=== PATIENT | female | born 1940 | race Caucasian/White ===

== ENCOUNTER 2017-09-08 10:01 | Emergency (ER) | payer MEDICARE ==
[2017-09-08] MEDS ORDERED: NORMAL SALINE 1000 ML 1,000 ML IV ONE (11:00)
--- NOTE | 2017-09-08 11:07 | ER Document Report ---
ED Medical Screen (RME) - General Chief Complaint: Decreased Appetite Stated Complaint: FALL Time Seen by Provider: 09/08/17 10:58 Notes: This 77-year-old female patient comes emergency room complaining of onset Wednesday night of nausea vomiting diarrhea. She vomited all night Wednesday night, now just has dry heaves. She has had poor p.o. intake for the past week. She reports she has been having diarrhea since Wednesday evening. Not sure about fevers. No recent antibiotic treatment. I have greeted and performed a rapid initial assessment of this patient. A comprehensive ED assessment and evaluation of the patient, analysis of test results and completion of the medical decision making process will be conducted by additional ED providers. - Related Data Allergies/Adverse Reactions: No Known Allergies Allergy (Verified 09/08/17 10:05) Past Medical History - Social History Chew tobacco use (# tins/day): No Frequency of alcohol use: None Drug Abuse: None - Past Medical History Cardiac Medical History: Reports: Hx Hypertension Renal/ Medical History: Reports: Hx End Stage Renal Disease - ckd. Denies: Hx Peritoneal Dialysis Past Surgical History: Reports: Hx Cholecystectomy, Hx Hysterectomy, Hx Tonsillectomy Physical Exam - Vital signs Vitals: Temp Pulse Resp BP Pulse Ox 98.7 F 103 H 21 H 132/65 H 96 09/08/17 10:07 09/08/17 10:07 09/08/17 10:07 09/08/17 10:07 09/08/17 10:07 Course - Vital Signs Vital signs: Temp Pulse Resp BP Pulse Ox 98.7 F 103 H 21 H 132/65 H 96 09/08/17 10:07 09/08/17 10:07 09/08/17 10:07 09/08/17 10:07 09/08/17 10:07
--- NOTE | 2017-09-08 12:36 | RADIOLOGY REPORT (SQ) ---
EXAM DESCRIPTION: ACUTE ABDOMEN SERIES COMPLETED DATE/TIME: 09/08/2017 12:00 pm REASON FOR STUDY: N,V,D, COPD COMPARISON: None. NUMBER OF VIEWS: Three views. TECHNIQUE: Frontal chest, supine abdomen and upright/decubitus abdomen radiographic images acquired. LIMITATIONS: None. FINDINGS: CHEST: Lungs clear of infiltrates. FREE AIR: None. No abnormal gas collections. BOWEL GAS PATTERN: Gas is present in the large and small bowel in a nonspecific pattern. No bowel di latation or air-fluid levels are seen suggest obstruction. CALCIFICATIONS: No suspicious calcifications. HARDWARE: Multiple surgical clips in the right upper quadrant. Single surgical clip in the pelvis. SOFT TISSUES: No gross mass or suggestion of organomegaly. BONES: No acute fracture. No worrisome bone lesions. OTHER: No other significant finding. IMPRESSION: NO RADIOGRAPHIC EVIDENCE FOR ACUTE ABDOMINAL DISEASE. TECHNICAL DOCUMENTATION: JOB ID: [id number] [employer]- All Rights Reserved
[2017-09-08 12:41] LABS: ABSOLUTE EOSINOPHILS # (AUTO) 0.1 10^3/uL (0.0-0.6); ABSOLUTE LYMPHOCYTES (AUTO) 0.6 10^3/uL (0.5-4.7); ABSOLUTE MONOCYTES (AUTO) 0.6 10^3/uL (0.1-1.4); BASOPHILS % (AUTO) 0.4 % (0-2); EOSINOPHILS % (AUTO) 1.2 % (0-6); HEMATOCRIT 40.8 % (36.0-47.0); HEMOGLOBIN 13.3 g/dL (12.0-15.5); LYMPHOCYTES % (AUTO) 7.4 % (13-45); MEAN CORPUSCULAR HEMOGLOBIN 29.1 pg (27.0-33.4); MEAN CORPUSCULAR HGB CONC 32.7 g/dL (32.0-36.0); MEAN CORPUSCULAR VOLUME 89 fl (80-97); MONOCYTES % (AUTO) 7.7 % (3-13); PLATELET COUNT 263 10^3/uL (150-450); RED BLOOD COUNT 4.57 10^6/uL (3.72-5.28); RED CELL DISTRIBUTION WIDTH 14.7 % (11.5-14.0); SEGMENTED NEUTROPHILS % (AUTO) 83.3 % (42-78); TOTAL CELLS COUNTED % (AUTO) 100 %; WHITE BLOOD COUNT 8.4 10^3/uL (4.0-10.5)
[2017-09-08 13:00] LABS: ALANINE AMINOTRANSFERASE 40 U/L (9-52); ALBUMIN 3.8 g/dL (3.5-5.0); ALKALINE PHOSPHATASE 82 U/L (38-126); ANION GAP 13 (5-19); ASPARTATE AMINO TRANSFERASE 27 U/L (14-36); BILIRUBIN,DIRECT 0.3 mg/dL (0.0-0.4); BILIRUBIN,TOTAL 0.4 mg/dL (0.2-1.3); BLOOD UREA NITROGEN 28 mg/dL (7-20); CALCIUM 8.8 mg/dL (8.4-10.2); CARBON DIOXIDE 23 mmol/L (22-30); CHLORIDE 106 mmol/L (98-107); CREATINE KINASE 59 U/L (30-135); GLUCOSE 108 mg/dL (75-110); MAGNESIUM 1.9 mg/dL (1.6-2.3); POTASSIUM 4.3 mmol/L (3.6-5.0); SODIUM 141.5 mmol/L (137-145); TOTAL PROTEIN 6.4 g/dL (6.3-8.2)
[2017-09-08 13:11] LABS: CREATINE KINASE MB 0.91 ng/mL (<4.55)
[2017-09-08 13:14] LABS: TROPONIN I < 0.012 ng/mL
--- NOTE | 2017-09-08 14:42 | ER Document Report ---
ED GI/ - General Chief Complaint: Decreased Appetite Stated Complaint: FALL Time Seen by Provider: 09/08/17 10:58 Notes: Patient says that she has been sick for the last 3 days with vomiting and diarrhea. It started Wednesday. had similar symptoms for 3 days last week. Patient was also sick about a month ago with something similar. At that time, she experienced a fall, no recent fall. Her vomiting has not had any blood, but has had yellow bile color to it. She is also had diarrhea without blood. Her urine output has been decreased. Denies any fever. PMH: Hysterectomy partial, cholecystectomy, bladder lift. - Related Data Allergies/Adverse Reactions: No Known Allergies Allergy (Verified 09/08/17 10:05) Past Medical History - Social History Smoking Status: Former Smoker Cigarette use (# per day): No Chew tobacco use (# tins/day): No Frequency of alcohol use: None Drug Abuse: None Family History: Reviewed & Not Pertinent Patient has suicidal ideation: No Patient has homicidal ideation: No - Past Medical History Cardiac Medical History: Reports: Hx Hypercholesterolemia, Hx Hypertension Endocrine Medical History: Reports: Hx Hypothyroidism Renal/ Medical History: Reports: Hx End Stage Renal Disease - ckd Past Surgical History: Reports: Hx Cholecystectomy, Hx Hysterectomy, Hx Tonsillectomy Review of Systems - Review of Systems Notes: CONSTITUTIONAL : Denies fever. Vital signs were all essentially normal. CARDIOVASCULAR: Denies chest pain. RESPIRATORY: Denies cough, chest congestion, or shortness of breath. GASTROINTESTINAL: See HPI. GENITOURINARY: Denies difficulty or painful urinating, urinary frequency, blood in urine. Physical Exam - Vital signs Vitals: Temp Pulse Resp BP Pulse Ox 98.7 F 103 H 21 H 132/65 H 96 09/08/17 10:07 09/08/17 10:07 09/08/17 10:07 09/08/17 10:07 09/08/17 10:07 Interpretation: Normal - Notes Notes: PHYSICAL EXAMINATION: GENERAL: Well-appearing, no acute distress. HEAD: Atraumatic, normocephalic. NECK: Normal range of motion, supple. LUNGS: Breath sounds clear and equal bilaterally. HEART: Regular rate and rhythm without murmurs heard. ABDOMEN: Soft, nontender. No guarding or rebound or masses felt. Course - Re-evaluation Re-evalutation: 09/08/17 19:57 Patient felt better after a liter of saline IV. However, she still was having some diarrhea. I have opted to give her 3 days of Cipro for possible colitis. I told her she can use [id number] medications for the diarrhea, but we usually just let it run its course. - Vital Signs Vital signs: Temp Pulse Resp BP Pulse Ox 98.2 F 90 18 146/69 H 98 09/08/17 15:05 09/08/17 15:05 09/08/17 15:05 09/08/17 15:05 09/08/17 15:05 - Laboratory Result Diagrams: 09/08/17 12:28 09/08/17 12:28 Laboratory results interpreted by me: 09/08/17 09/08/17 12:28 12:28 RDW 14.7 H Seg Neutrophils % 83.3 H Lymphocytes % 7.4 L BUN 28 H Creatinine 1.34 H Est GFR ( Amer) 47 L Est GFR (Non-Af Amer) 39 L Discharge - Discharge Clinical Impression: Vomiting and diarrhea Condition: Stable Disposition: HOME, SELF-CARE Additional Instructions: VOMITING: Vomiting (or nausea without vomiting) can be caused by many other different problems. It can mean that something's wrong with the stomach, such as ulcers or inflammation or the intestinal tract, such as appendicitis. But it can also be a symptom of a problem that has nothing to do with the stomach or intestines. Vomiting is common with severe headaches, earaches, tonsillitis, and kidney infections, etc. We see it with pneumonia or heart attacks. Drugs can cause nausea and vomiting. Many abdominal problems cause vomiting; for example, gallstones, kidney stones, pancreatitis, and intestinal obstruction ( blocked bowels). In most cases, curing the vomiting depends on fixing the problem that caused it. For temporary relief, we may use an anti-nausea medicine. For home use, we can prescribe suppositories, chewable pills, pills that dissolve in the mouth, or liquid anti-nausea drugs. If the vomiting seems to be caused by a problem in the stomach, acid-suppressing drugs may be prescribed as well. It's important to avoid dehydration. Sip small amounts of clear liquids ( soft drinks, tea, broth, etc) . Try to take fluids frequently even if you are vomiting to prevent dehydration. Take increasing amounts of fluid and when liquids are being consumed successfully, advance to small amounts of bland food (toast, soups, mashed potatoes, etc.) until you are able to resume a regular diet. Avoid aspirin, tobacco, and alcohol. If the vomiting worsens, if the problem that's making you vomit worsens, or if there's evidence of bleeding in the stomach (such as black, tarry stool, or bloody or black vomit), you should return immediately. Also, return if abdominal pain worsens or becomes localized to one area or you develop high fever. Call your doctor if you aren't improved in 24 hours. DIARRHEA, NON-SPECIFIC: Diarrhea means frequent, watery stools. There are many causes. Any problem that keeps the intestinal tract from absorbing water from the stool can lead to diarrhea. A sudden new diarrhea problem is usually caused by a virus, food sensitivity, toxic bacteria, or drugs. In this case, we expect the problem to go away soon. Testing is done only if you seem seriously ill from the diarrhea. If you have chronic diarrhea, or diarrhea that keeps coming back, we need to find out why. Chronic diarrhea can be due to inflammation of the bowels such as Crohn's disease or ulcerative colitis, food sensitivity such as intolerance to lactose or wheat protein, irritable bowel syndrome, and other problems. If your diarrhea is a significant problem but it's not clear why you have it, we' ll refer you to a specialist for further testing. During an episode of diarrhea, drink small amounts (two to six ounces) of clear liquids (soft drinks, sport drinks, herb teas, broth, etc). Take fluids frequently to prevent dehydration. It's usually not a problem to take mild anti- diarrhea medication such as Kaopectate or Pepto-Bismol. As the diarrhea eases, advance to small amounts of bland food (mashed potato, toast) for 24 hours. Call the physician if blood appears in your vomit or stool, if vomiting lasts longer than 24 hours, if the abdominal pain worsens or becomes localized to one area, if you develop high fever, or if you become lightheaded and weak. Colitis, Nonspecific Colitis is an inflammatory disease of the large intestine which affects the lining of the bowel. The cause is uncertain, though it is often caused by an infection. In some cases, the symptoms resolve and can return again in the future. Colitis is characterized by abdominal pain, often nausea and vomiting, and either diarrhea or difficulty with bowel movements. Sometimes blood will be present in the bowel movements. Fever is often present as well. Milder cases of colitis can be managed as an outpatient with medications for nausea and vomiting and pain, oral fluid therapy, and perhaps antibiotics, if a bacterial origin is suspected. Antidiarrhea medicine should usually be avoided in colitis. If you have increasing abdominal pain, repeated vomiting, fever, rectal bleeding, or worsening diarrhea, you should return for re-evaluation. INTRAVENOUS (I V) FLUIDS: As part of your care today, you received intravenous (IV) fluids. IV fluids are administered to patients who are dehydrated or to those who have certain chemical (electrolyte) abnormalities that need correcting. ANTINAUSEA MEDICATION: You have been given a medication to suppress nausea and vomiting. This type of medication can be given as a shot, pill, or suppository. It will usually last for many hours. Pills and shots usually last six to eight hours. For the typical illness, only one or two doses of the medication may be necessary. Mild lightheadedness may occur. This type of medicine can cause drowsiness. Do not drive or operate dangerous machinery while under its influence. Do not mix with alcohol. See your doctor at once if you have muscle spasms or tightness, or uncontrollable motions (particularly of the neck, mouth, or jaw). Persistent vomiting or severe lightheadedness should also be evaluated by the physician. Ciprofloxacin You have been given an antibacterial agent, ciprofloxacin (Cipro). This medicine is not related to the penicillins, sulfas, cephalosporins, or tetracyclines. It is often given to patients who are allergic to these drugs. It has been chosen for you either because other drugs are not appropriate, or because of the nature of your problem. Cipro should not be taken with antacids, as these can decrease its effectiveness. It can be taken without regard to meals. CIPRO SHOULD NOT BE TAKEN BY CHILDREN, NURSING WOMEN, OR WOMEN. Although Cipro is usually well-tolerated, common side effects can include nausea and diarrhea. Contact your doctor if you experience any unusual symptoms while on this medication, such as joint pain or swelling, shortness of breath, wheezing, faintness, or hives. FOLLOW-UP CARE: If you have been referred to a physician for follow-up care, call the physician s office for an appointment as you were instructed or within the next two days. If you experience worsening or a significant change in your symptoms, notify the physician immediately or return to the Emergency Department at any time for re-evaluation. Prescriptions: Ondansetron [Zofran Odt 4 mg Tablet] 1 - 2 tab PO Q4HP PRN #10 tab.rapdis PRN Reason: For Nausea/Vomiting Ciprofloxacin HCl [Cipro 500 mg Tablet] 500 mg PO BID #6 tablet
[2017-09-08 15:11] VITALS: BP 146/69
--- NOTE | 2017-09-08 23:09 | EKG REPORT ---
SEVERITY:- NORMAL ECG - SINUS RHYTHM : Confirmed by: Chano Garcia 08-Sep-2017 23:08:51
== END 2017-09-08 14:57 | disposition home or self-care (01) ==
LOC: ER 10:01
DX: R11.10 Vomiting, unspecified (principal); R19.7 Diarrhea, unspecified; I10 Essential (primary) hypertension; Z91.81 History of falling; Z87.891 Personal history of nicotine dependence
CPT/HCPCS: 93005; 99284; 96360; 36415; 82553; 82550; 83735; 85025; 80053; 84484; 74022; 93010; J7030

== ENCOUNTER → 2017-09-22 | Outpatient (CLI) | payer MEDICARE ==
[~2017-09-22] MED LIST: ALBUTEROL SULFATE 0.083% NEB 2.5 MG/3 ML AMPUL NEB ONE
--- NOTE | 2017-09-23 13:21 | PULMONARY FUNCTION TEST ---
DATE OF SERVICE: 09/22/2017 THE VITAL CAPACITY IS SLIGHTLY DECREASED. THE EXPIRATORY FLOW RATES ARE MODERATELY DECREASED. THE FEV1/VC IS 58%, PREDICTED: 81% LUNG VOLUMES BY NITROGEN WASH OUT METHOD SHOW: TLC IS 105% OF PREDICTED FRC IS 163% OF PREDICTED RV IS 132% OF PREDICTED THE DLCO IS 18.4, 72% OF PREDICTED. THE RV/TLC RATIO IS 52% PREDICTED 42% AFTER BRONCHODILATOR, EXPIRATORY FLOW RATES SHOW SIGNIFICANT IMPROVEMENT. IMPRESSION: GOOD PATIENT EFFORT. MODERATE OBSTRUCTIVE DEFECT WITH SIGNIFICANT IMPROVEMENT IN EXPIRATORY FLOW RATES AFTER BRONCHODILATOR. LUNG VOLUMES SHOW SOME HYPERINFLATION AND THE RV/TLC RATIO IS INCREASED. DIFFUSING CAPACITY IS SLIGHTLY DECREASED. CC: AMISHA CLEARY MD > [facility]
== END ==
LOC: RT 06:52
PROVIDERS: ATTEND Internal Medicine Pulmonary Disease
DX: J44.9 Chronic obstructive pulmonary disease, unspecified (principal)
CPT/HCPCS: 94729 ×2; 94727 ×2; 94060 ×2; 94760; A9270

== ENCOUNTER 2018-07-25 09:40 | Emergency (ER) | payer MEDICARE ==
--- NOTE | 2018-07-25 10:07 | ER Document Report ---
ED Medical Screen (RME) - General Chief Complaint: Breathing Difficulty Stated Complaint: DIFFICULTY BREATHING Time Seen by Provider: 07/25/18 10:06 Mode of Arrival: Wheelchair Information source: Patient Notes: This is a 78-year-old female with a history of COPD, hypertension, chronic kidney disease, hypothyroidism and borderline diabetes. Patient presents to the emergency room with shortness of breath, wheezing, dyspnea on exertion and increased lower extremity swelling. TRAVEL OUTSIDE OF THE [place] IN LAST 30 DAYS: No - Related Data Allergies/Adverse Reactions: No Known Allergies Allergy (Verified 07/25/18 09:41) Past Medical History - Past Medical History Cardiac Medical History: Reports: Hx Hypercholesterolemia, Hx Hypertension Endocrine Medical History: Reports: Hx Hypothyroidism Renal/ Medical History: Reports: Hx End Stage Renal Disease - ckd. Denies: Hx Peritoneal Dialysis Past Surgical History: Reports: Hx Cholecystectomy, Hx Hysterectomy, Hx Tonsillectomy Physical Exam - Vital signs Vitals: Temp Pulse Resp BP Pulse Ox 98.2 F 92 22 H 152/78 H 93 07/25/18 09:44 07/25/18 09:44 07/25/18 09:44 07/25/18 09:44 07/25/18 09:44 Course - Vital Signs Vital signs: Temp Pulse Resp BP Pulse Ox 98.2 F 92 22 H 152/78 H 93 07/25/18 09:44 07/25/18 09:44 07/25/18 09:44 07/25/18 09:44 07/25/18 09:44
[2018-07-25] MEDS ORDERED: IPRATROPIUM/ALBUTEROL 0.5-2.5 MG/3 ML AMPUL NEB ONE (10:08)
[2018-07-25 11:25] LABS: APPEARANCE,URINE SLIGHTLY-CLOUDY; BILIRUBIN,URINE NEGATIVE (NEGATIVE); COLOR,URINE YELLOW; GLUCOSE, URINE NEGATIVE (NEGATIVE); KETONES,URINE NEGATIVE (NEGATIVE); LEUKOCYTE ESTERASE,URINE NEGATIVE (NEGATIVE); NITRITE,URINE NEGATIVE (NEGATIVE); PROTEIN,URINE NEGATIVE (NEGATIVE); URINE SPECIFIC GRAVITY 1.012; UROBILINOGEN,URINE NEGATIVE mg/dL (<2.0)
[2018-07-25 11:55] LABS: HEMATOCRIT 36.6 % (36.0-47.0); MEAN CORPUSCULAR HEMOGLOBIN 29.4 pg (27.0-33.4); MEAN CORPUSCULAR HGB CONC 32.7 g/dL (32.0-36.0); MEAN CORPUSCULAR VOLUME 90 fl (80-97); PLATELET COUNT 249 10^3/uL (150-450); RED BLOOD COUNT 4.07 10^6/uL (3.72-5.28); RED CELL DISTRIBUTION WIDTH 14.2 % (11.5-14.0)
[2018-07-25] MEDS ORDERED: MAGNESIUM SULFATE/D5W 1 GM/100 ML RTUPB IV ONE ×2 (12:14)
--- NOTE | 2018-07-25 12:14 | ER Document Report ---
ED General - General Chief Complaint: Breathing Difficulty Stated Complaint: DIFFICULTY BREATHING Time Seen by Provider: 07/25/18 10:06 Mode of Arrival: Wheelchair TRAVEL OUTSIDE OF THE [place] IN LAST 30 DAYS: No - HPI Notes: Patient is a 78-year-old female with a history of COPD, hypertension, chronic kidney disease, hypothyroidism who presents to the ED complaining of dry nonproductive cough, wheezing, shortness of breath primarily with exertion, and intermittent bilateral lower extremity swelling over the last 4-5 days. Patient states that 2wks ago she was on steroids for an upper respiratory infection/exacerbation of her COPD. Patient states that 5 days ago she started noticing swelling in her bilateral lower extremities, but was unable to elevate her legs that she normally would. Patient states that since she has been back home she has not had any significant swelling to the point of what it was 5 days ago. Patient states that she does continue to have wheezing and a cough at rest. She has not had any chest pain. Denies any drug allergies otherwise. Denies any prolonged immobilization, distance travel, recent surgery/trauma, personal cancer history, hormone use, smoking, or previous DVT/PE. Denies any headache, fever, neck pain, URI, sore throat, chest pain, palpitations, syncope , abdominal pain, nausea/vomiting/diarrhea, urinary retention, dysuria, hematuria, loss of control of bowel or bladder, numbness/tingling, saddle anesthesia, muscle paralysis/weakness, or rash. - Related Data Allergies/Adverse Reactions: No Known Allergies Allergy (Verified 07/25/18 09:41) Past Medical History - General Information source: Patient - Social History Smoking Status: Never Smoker Frequency of alcohol use: None Drug Abuse: None Family History: Reviewed & Not Pertinent Patient has suicidal ideation: No Patient has homicidal ideation: No - Past Medical History Cardiac Medical History: Reports: Hx Hypercholesterolemia, Hx Hypertension Pulmonary Medical History: Reports: Hx Asthma Endocrine Medical History: Reports: Hx Hypothyroidism Renal/ Medical History: Reports: Hx End Stage Renal Disease - ckd. Denies: Hx Peritoneal Dialysis Past Surgical History: Reports: Hx Cholecystectomy, Hx Hysterectomy, Hx Orthopedic Surgery - L TKR, Hx Tonsillectomy Review of Systems - Review of Systems -: Yes All other systems reviewed and negative Physical Exam - Vital signs Vitals: Temp Pulse Resp BP Pulse Ox 98.2 F 92 22 H 152/78 H 93 12/03/18 09:44 07/25/18 09:44 07/25/18 09:44 07/25/18 09:44 07/25/18 09:44 - Notes Notes: PHYSICAL EXAMINATION: GENERAL: Well-appearing, well-nourished and in no acute distress. HEAD: Atraumatic, normocephalic. EYES: Pupils equal round and reactive to light, extraocular movements intact, sclera anicteric, conjunctiva are normal. ENT: Nares patent and without discharge. oropharynx clear without exudates. No tonsilar hypertrophy or erythema. Moist mucous membranes. NECK: Normal range of motion, supple without lymphadenopathy LUNGS: wheezing b/l. HEART: Regular rate and rhythm without murmurs, rubs, gallops. ABDOMEN: Soft, nontender, nondistended abdomen. No guarding, no rebound. No masses appreciated. Normal bowel sounds present. No CVA tenderness bilaterally. Musculoskeletal: FROM to passive/active. Strength 5+/5. Elizabeth neg. No asymmetry to LE's. Extremities: Trace pitting edema b/l LE's w/o asymmetry. Peripheral pulses 2+ . Capillary refill less than 3 seconds. NEUROLOGICAL: Normal speech, normal gait. PSYCH: Normal mood, normal affect. SKIN: Warm, Dry, normal turgor, no rashes or lesions noted. Course - Re-evaluation Re-evalutation: 07/25/18 15:01 Patient is an afebrile, well-hydrated 78-year-old female who presents to the ED with acute exacerbation of COPD/bronchitis. Vitals are acceptable without any significant tachycardia, tachypnea, or hypoxia. PE is otherwise unremarkable. Patient is nontoxic-appearing and is tolerating p.o. without any difficulties. CBC, CMP, EKG/cardiac enzymes, EKG, BNP, chest x-ray are all unremarkable for any acute pathology. Wells score of 0. Patient does not have any chest pain, dyspnea, or current shortness of breath. She presented initially with significant wheezes throughout that has since been greatly improved with magnesium, nebs, and solumedrol. Pt was ambulated and maintained b/w 91-93% on RA and did not become tachypneic, no distress. She is speaking in complete sentences and talked almost non-stop for about 20 seconds straight upon final review. Patient's presentation and symptomatology creates low suspicion for ACS , PE, pneumothorax, pericarditis, dissection, respiratory compromise, severe dehydration, sepsis, meningitis, or other systemic emergent condition at this time. Patient is aware that her condition can change from initial presentation and she needs to monitor symptoms closely and seek medical attention for any acute changes. Pt is feeling better and would like to go home. Rx for zithromax, steroids, and spacer for her inhalers as she is declining neb ampules. Strict return precautions reviewed. Recommend conservative measures for symptoms. Recheck with your PCM in 2-3 days. Return to the ED with any worsening/concerning symptoms otherwise as reviewed in discharge. Patient is in agreement. Reviewed with Dr. Kaye who is in agreement with dispo/plan. - Vital Signs Vital signs: Temp Pulse Resp BP Pulse Ox 98.2 F 92 11 L 159/72 H 94 07/25/18 09:44 07/25/18 09:44 07/25/18 14:01 07/25/18 14:01 07/25/18 14:01 - Laboratory Result Diagrams: 07/25/18 11:40 07/25/18 11:40 Laboratory results interpreted by me: 07/25/18 07/25/18 11:40 11:40 WBC 11.0 H RDW 14.2 H Band Neutrophils % 2 L Abs Neuts (Manual) 8.8 H BUN 23 H Creatinine 1.27 H Est GFR ( Amer) 50 L Est GFR (Non-Af Amer) 41 L Discharge - Discharge Clinical Impression: COPD with acute exacerbation Condition: Stable Disposition: HOME, SELF-CARE Additional Instructions: Maintain adequate fluid intake Take meds as directed Use inhalers as directed and rescue inhaler every 4 hours with spacer tylenol/ibuprofen as needed over the counter cold medication as needed for symptoms Humidified air may help Wash your hands regularly Wear a mask when coughing F/u: with your PCM in 2-3 days for a recheck Return to the ED with any fever, worsening pain, chest pain, palpitations, syncope, worsening KENT, neck pain/stiffness, shortness of breath, wheezing, drooling, trouble swallowing/breathing, abdominal pain, n/v/d, rash, or worsening/concerning symptoms otherwise. Prescriptions: Azithromycin [Zithromax 250 mg Tablet] 250 mg PO ASDIR PRN #6 tablet PRN Reason: Prednisone [Deltasone 20 mg Tablet] 2 tab PO DAILY 5 Days #10 tablet Forms: Elevated Blood Pressure Referrals: GALLO MELENDEZ MD [ACTIVE STAFF] - Follow up as needed
--- NOTE | 2018-07-25 12:18 | RADIOLOGY REPORT (SQ) ---
EXAM DESCRIPTION: CHEST 2 VIEWS COMPLETED DATE/TIME: 07/25/2018 11:46 am REASON FOR STUDY: sob COMPARISON: None. EXAM PARAMETERS: NUMBER OF VIEWS: two views TECHNIQUE: Digital Frontal and Lateral radiographic views of the chest acquired. RADIATION DOSE: NA LIMITATIONS: none FINDINGS: LUNGS AND PLEURA: No opacities, masses or pneumothorax. No pleural effusion. MEDIASTINUM AND HILAR STRUCTURES: No masses or contour abnormalities. HEART AND VASCULAR STRUCTURES: Heart normal size. No evidence for failure. BONES: No acute findings. HARDWARE: None in the chest. OTHER: No other significant finding. IMPRESSION: NO ACUTE RADIOGRAPHIC FINDING IN THE CHEST. TECHNICAL DOCUMENTATION: JOB ID: [id number] [employer]- All Rights Reserved Reading location - IP/workstation name: [email or web address]
[2018-07-25 12:21] LABS: ABSOLUTE LYMPHOCYTES# (MANUAL) 1.4 10^3/uL (0.5-4.7); ABSOLUTE MONOCYTES # (MANUAL) 0.7 10^3/uL (0.1-1.4); ABSOLUTE NEUTROPHILS# (MANUAL) 8.8 10^3/uL (1.7-8.2); BAND NEUTROPHILS % (MANUAL) 2 % (3-5); BASOPHILS % (MANUAL) 0 % (0-2); EOSINOPHILS % (MANUAL) 1 % (0-6); LYMPHOCYTES % (MANUAL) 13 % (13-45); MONOCYTES % (MANUAL) 6 % (3-13); SEGMENTED NEUTROPHILS % (MAN) 78 % (42-78); TOTAL CELLS COUNTED 100; TOXIC GRANULATION 1+
[2018-07-25 12:22] LABS: PLATELET COMMENT ADEQUATE; RBC MORPHOLOGY COMMENT NORMO-CYTIC/CHROMIC; TOXIC VACUOLATION PRESENT
[2018-07-25 12:23] LABS: ALANINE AMINOTRANSFERASE 27 U/L (9-52); ALBUMIN 3.8 g/dL (3.5-5.0); ALKALINE PHOSPHATASE 79 U/L (38-126); ANION GAP 12 (5-19); ASPARTATE AMINO TRANSFERASE 24 U/L (14-36); BILIRUBIN,DIRECT 0.3 mg/dL (0.0-0.4); BILIRUBIN,TOTAL 0.9 mg/dL (0.2-1.3); BLOOD UREA NITROGEN 23 mg/dL (7-20); CALCIUM 9.3 mg/dL (8.4-10.2); CARBON DIOXIDE 30 mmol/L (22-30); CHLORIDE 99 mmol/L (98-107); CREATINE KINASE 69 U/L (30-135); GLUCOSE 109 mg/dL (75-110); POTASSIUM 4.9 mmol/L (3.6-5.0); SODIUM 140.7 mmol/L (137-145); TOTAL PROTEIN 6.5 g/dL (6.3-8.2)
[2018-07-25] MEDS ORDERED: METHYLPREDNISOLONE INJ 125 MG/2 ML SDV IV ONE (12:31)
[2018-07-25 12:35] LABS: CREATINE KINASE MB 0.53 ng/mL (<4.55); NT PRO BNP 384 pg/mL (<450)
[2018-07-25 12:38] LABS: TROPONIN I < 0.012 ng/mL
[2018-07-25 14:29] VITALS: BP 159/72
--- NOTE | 2018-07-25 15:15 | EKG REPORT ---
SEVERITY:- OTHERWISE NORMAL ECG - SINUS RHYTHM LOW VOLTAGE IN FRONTAL LEADS : Confirmed by: Chano Garcia 25-Jul-2018 15:14:37
== END 2018-07-25 15:33 | disposition home or self-care (01) ==
LOC: ER 09:40
DX: J44.1 Chronic obstructive pulmonary disease with (acute) exacerbation (principal); R60.0 Localized edema; I12.9 Hypertensive chronic kidney disease with stage 1 through stage 4 chronic kidney disease, or unspecified chronic kidney disease; N18.6 End stage renal disease; E03.9 Hypothyroidism, unspecified; M79.89 Other specified soft tissue disorders; E78.00 Pure hypercholesterolemia, unspecified; Z96.652 Presence of left artificial knee joint
CPT/HCPCS: 93005; 96376; 94640; 99285; 96374; 96375; 36415; 82553; 82550; 85025; 80053; 81001; 84484; 83880; 71046; 93010; J2930; J3475; A9270; J7620

== ENCOUNTER 2019-02-20 08:52 | Inpatient (IN) | payer MEDICARE ==
--- NOTE | 2019-02-20 09:37 | ER Document Report ---
ED Medical Screen (RME) - General Chief Complaint: Headache Stated Complaint: HEADACHE Time Seen by Provider: 02/20/19 09:34 Mode of Arrival: Wheelchair Information source: Patient Notes: Patient reports elevated blood pressure for the past month and a half with a headache for the past month that worsened over the past 2 days. Patient does report having her blood pressure medications adjusted last week. Patient complains of generalized weakness as well. hx: COPD, asthma, hypertension, hypothyroid, GERD I have greeted and performed a rapid initial assessment of this patient. A comprehensive ED assessment and evaluation of the patient, analysis of test results and completion of the medical decision making process will be conducted by additional ED providers. TRAVEL OUTSIDE OF THE [place] IN LAST 30 DAYS: No - Related Data Allergies/Adverse Reactions: aspirin Allergy (Verified 02/20/19 08:53) Past Medical History - Past Medical History Cardiac Medical History: Reports: Hx Hypercholesterolemia, Hx Hypertension Pulmonary Medical History: Reports: Hx Asthma Endocrine Medical History: Reports: Hx Hypothyroidism Renal/ Medical History: Reports: Hx End Stage Renal Disease - ckd. Denies: Hx Peritoneal Dialysis Past Surgical History: Reports: Hx Cholecystectomy, Hx Hysterectomy, Hx Orthopedic Surgery - L TKR, Hx Tonsillectomy Physical Exam - Vital signs Vitals: Temp Pulse Resp BP Pulse Ox 97.7 F 67 16 210/71 H 93 02/20/19 08:57 02/20/19 08:57 02/20/19 08:57 02/20/19 08:57 02/20/19 08:57 - Neurological Neuro grossly intact: Yes Cognition: Normal Orientation: AAOx4 Steve Coma Scale Eye Opening: Spontaneous Steve Coma Scale Verbal: Oriented Steve Coma Scale Motor: Obeys Commands Steve Coma Scale Total: 15 Course - Vital Signs Vital signs: Temp Pulse Resp BP Pulse Ox 97.7 F 67 16 210/71 H 93 02/20/19 08:57 02/20/19 08:57 02/20/19 08:57 02/20/19 08:57 02/20/19 08:57
--- NOTE | 2019-02-20 10:23 | RADIOLOGY REPORT (SQ) ---
EXAM DESCRIPTION: CT HEAD WITHOUT COMPLETED DATE/TIME: 02/20/2019 10:04 am REASON FOR STUDY: KENT, HTN COMPARISON: None. TECHNIQUE: Axial images acquired through the brain without intravenous contrast. Images reviewed wi th bone, brain and subdural windows. Additional sagittal and coronal reconstructions were generated. Images stored on PACS. All CT scanners at this facility use dose modulation, iterative reconstruction, and/or weight based d osing when appropriate to reduce radiation dose to as low as reasonably achievable (ALARA). [facility]: Dose Right [facility]: CareDose [facility]: Dose Right [facility]: Teradose 4D [facility]: Smart [employer] Odor Resistant Bedding RADIATION DOSE: CT Rad equipment meets quality standard of care and radiation dose reduction techniq ues were employed. CTDIvol: 53.2 mGy. DLP: 1017 mGy-cm. mGy. LIMITATIONS: None. FINDINGS: VENTRICLES: Normal size and contour. CEREBRUM: No masses. No hemorrhage. No midline shift. No evidence for acute infarction. Normal gra y/white matter differentiation. No areas of low density in the white matter. CEREBELLUM: No masses. No hemorrhage. No alteration of density. No evidence for acute infarction. EXTRAAXIAL SPACES: No fluid collections. No masses. ORBITS AND GLOBE: No intra- or extraconal masses. Normal contour of globe without masses. CALVARIUM: No fracture. PARANASAL SINUSES: No fluid or mucosal thickening. SOFT TISSUES: No mass or hematoma. OTHER: No other significant finding. IMPRESSION: NORMAL BRAIN CT WITHOUT CONTRAST. EVIDENCE OF ACUTE STROKE: NO. COMMENT: Quality ID # [id number]: Final reports with documentation of one or more dose reduction techniques (e.g., Automated exposure control, adjustment of the mA and/or kV according to patient size, use of iterative reconstruction technique) TECHNICAL DOCUMENTATION: JOB ID: [id number] [employer]- All Rights Reserved Reading location - IP/workstation name: [email or web address]
--- NOTE | 2019-02-20 10:25 | RADIOLOGY REPORT (SQ) ---
EXAM DESCRIPTION: CHEST 2 VIEWS COMPLETED DATE/TIME: 02/20/2019 10:06 am REASON FOR STUDY: KENT HTN COMPARISON: 07/25/2018 EXAM PARAMETERS: NUMBER OF VIEWS: two views TECHNIQUE: Digital Frontal and Lateral radiographic views of the chest acquired. RADIATION DOSE: NA LIMITATIONS: none FINDINGS: LUNGS AND PLEURA: No opacities, masses or pneumothorax. No pleural effusion. MEDIASTINUM AND HILAR STRUCTURES: No masses or contour abnormalities. HEART AND VASCULAR STRUCTURES: Heart normal size. No evidence for failure. BONES: No acute findings. HARDWARE: None in the chest. OTHER: No other significant finding. IMPRESSION: NO ACUTE RADIOGRAPHIC FINDING IN THE CHEST. TECHNICAL DOCUMENTATION: JOB ID: [id number] [employer]- All Rights Reserved Reading location - IP/workstation name: [email or web address]
[2019-02-20 11:52] LABS: APPEARANCE,URINE CLEAR; BILIRUBIN,URINE NEGATIVE (NEGATIVE); COLOR,URINE YELLOW; GLUCOSE, URINE NEGATIVE (NEGATIVE); KETONES,URINE NEGATIVE (NEGATIVE); LEUKOCYTE ESTERASE,URINE NEGATIVE (NEGATIVE); NITRITE,URINE NEGATIVE (NEGATIVE); PROTEIN,URINE NEGATIVE (NEGATIVE); URINE SPECIFIC GRAVITY 1.015; UROBILINOGEN,URINE NEGATIVE mg/dL (<2.0)
[2019-02-20] MEDS ORDERED: DIPHENHYDRAMINE HCL 50 MG/ML VIAL IV ONE (13:31)
[2019-02-20] MEDS ORDERED: PROCHLORPERAZINE EDISYLATE INJ 10 MG/2 ML VIAL IV ONE (13:31)
[2019-02-20] MEDS ORDERED: HYDRALAZINE HCL INJ/PF 20 MG/1 ML SDV IV ONE ×2 (13:31→22:30)
--- NOTE | 2019-02-20 13:37 | ER Document Report ---
ED Headache - General Chief Complaint: Headache Stated Complaint: HEADACHE Time Seen by Provider: 02/20/19 09:34 Primary Care Provider: SONIDO VAZQUEZ MD [Primary Care Provider] - Follow up as needed Mode of Arrival: Wheelchair Information source: Patient, [facility] Records Notes: This 78-year-old female patient comes emergency room complaining of elevated blood pressure and bitemporal headache. She has had the high blood pressure and some headaches for the last 6 weeks or more but it is worse the last few days. She had been on losartan 100 mgHCTZ 12.5 for a long time. On 01/17/2019 she had clonidine 0.1 Q8 hrs added. She states that it did not seem to really help her blood pressure very much, and it made her sleepy. On 02/17/2019, the clonidine was stopped and she was placed on hydralazine 50 mg Q8 hrs. she states that her blood pressures have been running in the 200- 216 range for quite some time, but have gotten even higher over the last few days. TRAVEL OUTSIDE OF THE [place] IN LAST 30 DAYS: No - Related Data Allergies/Adverse Reactions: aspirin Allergy (Verified 02/20/19 08:53) Past Medical History - General Information source: Patient, [facility] Records - Social History Smoking Status: Never Smoker Cigarette use (# per day): No Chew tobacco use (# tins/day): No Smoking Education Provided: No Frequency of alcohol use: None Drug Abuse: None Occupation: retired Lives with: Spouse/Significant other Family History: Reviewed & Not Pertinent Patient has suicidal ideation: No Patient has homicidal ideation: No - Past Medical History Cardiac Medical History: Reports: Hx Hypercholesterolemia, Hx Hypertension Pulmonary Medical History: Reports: Hx Asthma, Hx COPD Endocrine Medical History: Reports: Hx Hypothyroidism Renal/ Medical History: Reports: Hx Renal Insufficiency GI Medical History: Reports: Hx Gastroesophageal Reflux Disease Psychiatric Medical History: Reports: None Past Surgical History: Reports: Hx Cholecystectomy, Hx Hysterectomy, Hx Orthopedic Surgery - L TKR, Hx Tonsillectomy Review of Systems - Review of Systems Constitutional: No symptoms reported EENT: No symptoms reported Cardiovascular: No symptoms reported Respiratory: No symptoms reported Gastrointestinal: No symptoms reported Genitourinary: No symptoms reported Female Genitourinary: Post menopausal Musculoskeletal: No symptoms reported Skin: No symptoms reported Hematologic/Lymphatic: No symptoms reported Neurological/Psychological: See HPI, Headaches Physical Exam - Vital signs Vitals: Temp Pulse Resp BP Pulse Ox 97.7 F 67 16 210/71 H 93 02/20/19 08:57 02/20/19 08:57 02/20/19 08:57 02/20/19 08:57 02/20/19 08:57 Interpretation: Hypertensive - General General appearance: Appears well, Alert In distress: None - HEENT Head: Normocephalic, Atraumatic, Tenderness - Temporal muscles are tender to palpate bilaterally Eyes: Normal Extraocular movements intact: Yes Pupils: PERRL Neck: Normal, Other - Posterior cervical muscles are tender to palpate - Respiratory Respiratory status: No respiratory distress Breath sounds: Wheezing - Faint expiratory wheezes Chest palpation: Normal - Cardiovascular Rhythm: Regular Heart sounds: Normal auscultation Murmur: No - Abdominal Inspection: Obese Bowel sounds: Normal Tenderness: Nontender - Back Back: Normal - Extremities General upper extremity: Normal inspection General lower extremity: Normal inspection - Neurological Neuro grossly intact: Yes - Psychological Associated symptoms: Normal affect, Normal mood - Skin Skin Temperature: Warm Skin Moisture: Dry Skin Color: Normal Course - Re-evaluation Re-evalutation: 02/20/19 15:02 I went and see the patient about 1455 to check on her headache, and when I entered, the patient was nausea was, diaphoretic, holding an emesis bag. Her heart rate was in the 1 4150 range, a little irregular, looking at the monitor it looks like it may be atrial flutter. I am told that her rhythm has just changed in the last few minutes. She states that her headache is now a severe pounding headache. I did order a twelve-lead EKG and Lopressor 5 mg IV. 02/20/19 15:07 By the time the EKG was done, she had returned to a sinus rhythm with a rate in the upper 90s. She is smiling and looks better at this time. - Vital Signs Vital signs: Temp Pulse Resp BP Pulse Ox 97.7 F 67 14 183/73 H 93 02/20/19 08:57 02/20/19 08:57 02/20/19 15:46 02/20/19 15:46 02/20/19 15:46 - Diagnostic Test Radiology reviewed: Image reviewed, Reports reviewed - CT scan of the head is unremarkable. Chest x-ray is unremarkable. - EKG Interpretation by Me EKG shows normal: Sinus rhythm, [place], Intervals, ST-T Waves. abnormal: QRS Complexes - Order line R wave progression in anterior leads Rate: Normal - 68 Rhythm: NSR Voltage: Decreased voltage When compared to previous EKG there are: No significant change - Consults Dr. Rivera Time consulted: 17:16 Consulted provider: will come to ER Critical Care Note - Critical Care Note Total time excluding time spent on procedures (mins): 45 Discharge - Discharge Clinical Impression: Poorly controlled blood pressure, Tachyarrhythmia Headache Qualifiers: Headache type: tension-type Headache chronicity pattern: unspecified pattern Intractability: not intractable Qualified Code(s): G44.209 - Tension-type headache, unspecified, not intractable Condition: Stable Disposition: ADMITTED INPATIENT Admitting Provider: Miguel (Hospitalist) Unit Admitted: IMCU Referrals: SONIDO VAZQUEZ MD [Primary Care Provider] - Follow up as needed Scribe Attestation: 02/20/19 17:20 I personally performed the services described in the documentation, reviewed and edited the documentation which was dictated to the scribe in my presence, and it accurately records my words and actions.
[2019-02-20] MEDS ORDERED: METOPROLOL TARTRATE PF/INJ 5 MG/5 ML SDV IV ONE (15:00)
[2019-02-20 18:40] LABS: ABSOLUTE BASOPHILS # (AUTO) 0.1 10^3/uL (0.0-0.2); ABSOLUTE EOSINOPHILS # (AUTO) 0.1 10^3/uL (0.0-0.6); ABSOLUTE LYMPHOCYTES (AUTO) 1.3 10^3/uL (0.5-4.7); ABSOLUTE MONOCYTES (AUTO) 1.2 10^3/uL (0.1-1.4); ABSOLUTE NEUT (AUTO) 12.4 10^3/uL (1.7-8.2); BASOPHILS % (AUTO) 0.6 % (0-2); BLOOD UREA NITROGEN 22 mg/dL (7-20); CALCIUM 9.6 mg/dL (8.4-10.2); EOSINOPHILS % (AUTO) 0.9 % (0-6); GLUCOSE 115 mg/dL (75-110); HEMATOCRIT 39.2 % (36.0-47.0); HEMOGLOBIN 12.8 g/dL (12.0-15.5); LYMPHOCYTES % (AUTO) 8.8 % (13-45); MEAN CORPUSCULAR HEMOGLOBIN 28.3 pg (27.0-33.4); MEAN CORPUSCULAR HGB CONC 32.8 g/dL (32.0-36.0); MEAN CORPUSCULAR VOLUME 86 fl (80-97); MONOCYTES % (AUTO) 7.7 % (3-13); PLATELET COUNT 260 10^3/uL (150-450); RED BLOOD COUNT 4.53 10^6/uL (3.72-5.28); TOTAL CELLS COUNTED % (AUTO) 100 %; WHITE BLOOD COUNT 15.2 10^3/uL (4.0-10.5)
[2019-02-20 18:41] LABS: ALANINE AMINOTRANSFERASE 17 U/L (9-52); ALBUMIN 4.1 g/dL (3.5-5.0); ALKALINE PHOSPHATASE 77 U/L (38-126); ANION GAP 10 (5-19); ASPARTATE AMINO TRANSFERASE 21 U/L (14-36); BILIRUBIN,DIRECT 0.2 mg/dL (0.0-0.4); BILIRUBIN,TOTAL 0.7 mg/dL (0.2-1.3); CARBON DIOXIDE 29 mmol/L (22-30); CHLORIDE 102 mmol/L (98-107); POTASSIUM 4.1 mmol/L (3.6-5.0); SODIUM 140.9 mmol/L (137-145); TOTAL PROTEIN 6.9 g/dL (6.3-8.2)
[2019-02-20] MEDS ORDERED: ACETAMINOPHEN 325 MG TABLET PO PRN (19:04)
[2019-02-20] MEDS ORDERED: TEMAZEPAM 7.5 MG CAPSULE PO PRN (19:04)
[2019-02-20] MEDS ORDERED: HYDRALAZINE HCL INJ/PF 20 MG/1 ML SDV IV PRN ×2 (19:15→22:21)
[2019-02-20] MEDS ORDERED: METOPROLOL TARTRATE PF/INJ 5 MG/5 ML SDV IV PRN ×2 (19:15→22:21)
[2019-02-20] MEDS ORDERED: OXYCODONE HCL IR 5 MG TABLET PO PRN (19:19)
[2019-02-20] MEDS ORDERED: LEVALBUTEROL HCL NEB 0.63 MG/3 ML AMPUL NEB PRN (19:19)
--- NOTE | 2019-02-20 19:42 | PDOC H&P ---
History of Present Illness Admission Date/PCP: 02/20/19 17:28 SONIDO VAZQUEZ MD Patient complains of: Hypertension and headache History of Present Illness: EFRAIN WHITE is a 78 year morbidly obese old female with a history of hypertension and asthma reported to the emergency department because of a bad headache. She follows her blood pressures at home. Her systolic pressures have been greater than 200. She also had a terrible left-sided headache. During her evaluation emergency department she was given several doses of IV antihypertensive medications. She was given some medications for her headache. Her headache improved. Her blood pressure was improving and then she exhibited a tachyarrhythmia with a rate up to 140. It was possibly an atrial flutter. The rhythm spontaneously resolved. Because of the significant lability of her pressure as well as the need to monitor her and treat for tachyarrhythmia she was referred to the hospital service for admission. She also has asthma/chronic obstructive pulmonary disease. Unfortunately she did not know her medication regimen. She does note that she is on levothyroxine but she is not sure of the dose. Past Medical History Cardiac Medical History: Reports: Hyperlipidema, Hypertension Pulmonary Medical History: Reports: Asthma, Chronic Obstructive Pulmonary Disease (COPD) Endocrine Medical History: Reports: Hypothyroidism Renal/ Medical History: Reports: End Stage Renal Disease - ckd GI Medical History: Reports: Gastroesophageal Reflux Disease Psychiatric Medical History: Reports: None Past Surgical History Past Surgical History: Reports: Cholecystectomy, Hysterectomy, Orthopedic Surgery - L TKR, Tonsillectomy Social History Lives with: Spouse/Significant other Smoking Status: Never Smoker Frequency of Alcohol Use: None Hx Recreational Drug Use: No Hx Prescription Drug Abuse: No - Advance Directive Resuscitation Status: Do Not Resuscitate Family History Family History: CAD, DM Parental Family History Reviewed: Yes Children Family History Reviewed: Yes Sibling(s) Family History Reviewed.: Yes Medication/Allergy Allergies/Adverse Reactions: aspirin Allergy (Verified 02/20/19 08:53) Review of Systems All systems: reviewed and no additional remarkable complaints except as stated Constitutional: PRESENT: headache(s) Ears: PRESENT: hearing changes Cardiovascular: PRESENT: dyspnea on exertion Musculoskeletal: PRESENT: back pain Neurological: PRESENT: abnormal gait Physical Exam Vital Signs: Temp Pulse Resp BP Pulse Ox 97.7 F 84 17 202/73 H 93 02/20/19 08:57 02/20/19 18:35 02/20/19 18:35 02/20/19 18:35 02/20/19 18:35 Intake & Output 02/19/19 02/20/19 02/21/19 06:59 06:59 06:59 Weight 121.9 kg General appearance: PRESENT: cooperative, morbidly obese Head exam: PRESENT: atraumatic, normocephalic Eye exam: PRESENT: conjunctiva pink, EOMI. ABSENT: scleral icterus Mouth exam: PRESENT: dry mucosa, tongue midline Neck exam: PRESENT: other - Very large neck Respiratory exam: PRESENT: clear to auscultation roly, symmetrical, unlabored. ABSENT: rales, rhonchi, tachypnea, wheezes Cardiovascular exam: PRESENT: RRR, +S1, +S2, systolic murmur - 2/6 GI/Abdominal exam: PRESENT: normal bowel sounds, soft. ABSENT: guarding, tenderness Extremities exam: PRESENT: pedal edema Neurological exam: PRESENT: alert, awake, oriented to person, oriented to place, oriented to time, oriented to situation, CN II-XII grossly intact Psychiatric exam: ABSENT: agitated, anxious Focused psych exam: ABSENT: delusional, restlessness Results Laboratory Results: 02/20/19 17:50 02/20/19 17:50 02/20/19 02/20/19 02/20/19 09:39 17:50 17:50 WBC 15.2 H RBC 4.53 Hgb 12.8 Hct 39.2 MCV 86 MCH 28.3 MCHC 32.8 RDW 15.0 H Plt Count 260 Seg Neutrophils % 82.0 H Lymphocytes % 8.8 L Monocytes % 7.7 Eosinophils % 0.9 Basophils % 0.6 Absolute Neutrophils 12.4 H Absolute Lymphocytes 1.3 Absolute Monocytes 1.2 Absolute Eosinophils 0.1 Absolute Basophils 0.1 Sodium 140.9 Potassium 4.1 Chloride 102 Carbon Dioxide 29 Anion Gap 10 BUN 22 H Creatinine 1.14 Est GFR ( Amer) 56 L Est GFR (Non-Af Amer) 46 L Glucose 115 H Calcium 9.6 Total Bilirubin 0.7 AST 21 ALT 17 Alkaline Phosphatase 77 Total Protein 6.9 Albumin 4.1 Urine Color YELLOW Urine Appearance CLEAR Urine pH 6.0 Ur Specific [place] 1.015 Urine Protein NEGATIVE Urine Glucose (UA) NEGATIVE Urine Ketones NEGATIVE Urine Blood NEGATIVE Urine Nitrite NEGATIVE Ur Leukocyte Esterase NEGATIVE Urine WBC (Auto) 1 Urine RBC (Auto) 1 02/20/19 02/20/19 17:50 17:50 Creatine Kinase 73 Troponin I 0.021 Impressions: Chest X-Ray 02/20/19 09:34 IMPRESSION: NO ACUTE RADIOGRAPHIC FINDING IN THE CHEST. Head CT 02/20/19 09:35 IMPRESSION: NORMAL BRAIN CT WITHOUT CONTRAST. EVIDENCE OF ACUTE STROKE: NO. Assessment and Plan - Diagnosis (1) Tachyarrhythmia Is this a current diagnosis for this admission?: Yes Plan: 02/20/2019-during her evaluation in emergency department the patient exhibited a tachyarrhythmia with a rate of approximately 140. She was given intravenous metoprolol. This seemed to settle the heart rate. With her underlying asthma I am going to start diltiazem long-acting 120 mg daily. (2) Accelerated hypertension Is this a current diagnosis for this admission?: Yes Plan: 02/20/2019-the patient has been on Hyzaar 100/12.5 and clonidine. The clonidine was recently changed to hydralazine. Clearly the medication regimen is not working. I am going to start with continuing the losartan 100 mg daily but increase the hydrochlorothiazide component to 25 mg daily. I have added amlodipine 5 mg twice daily as well as diltiazem 120 mg daily. We will continue to monitor her blood pressure. (3) Headache Qualifiers: Headache type: tension-type Headache chronicity pattern: unspecified pattern Intractability: not intractable Qualified Code(s): G44.209 - Tension-type headache, unspecified, not intractable Is this a current diagnosis for this admission?: Yes Plan: 02/20/2019-hopefully with better blood pressure control her headache will resolve. Analgesia is available. (4) Hypothyroidism Qualifiers: Hypothyroidism type: unspecified Qualified Code(s): E03.9 - Hypothyroidism, unspecified Is this a current diagnosis for this admission?: Yes Plan: 02/20/2019-the patient reports history of hypothyroidism. She is on levothyroxine. Unfortunately she cannot remember the dose. We will need to wait for pharmacy to reconcile as her medications were not recorded earlier today. (5) COPD with asthma Is this a current diagnosis for this admission?: Yes Plan: 02/20/2019-she was on Symbicort but her physician just changed her to another inhaler. She does not know what the inhaler is. I do not know if she was on Spiriva. I will initiate Brio Ellipta at the higher dose. I will also make Xopenex nebulizer treatments available if needed. Currently she is on room air. (6) Morbid obesity with BMI of 45.0-49.9, adult Is this a current diagnosis for this admission?: Yes Plan: 02/20/2019-clearly the morbid obesity has a direct adverse effect on her well- being. It is to the point where she cannot walk to the bathroom without being out of breath. She uses a walker at home. I have ordered physical therapy to see her. She complains of chronic back pain and already has had a total knee arthroplasty on the left - Time Time Spent with patient: 35 or more minutes Medications reviewed and adjusted accordingly: Yes Anticipated discharge: Home - Inpatient Certification Based on my medical assessment, after consideration of the patient's comorbidities, presenting symptoms, or acuity I expect that the services needed warrant INPATIENT care.: Yes I certify that my determination is in accordance with my understanding of Medicare's requirements for reasonable and necessary INPATIENT services [42 CFR 412.3e].: Yes Medical Necessity: Need Close Monitoring Due to Risk of Patient Decompensation, Need For Continuous Telemetry Monitoring, Need for Nebulizer Therapy and Monitoring of Response, Need for Pain Control, Risk of Complication if Not Cared For in Hospital Post Hospital Care: D/C Game [employer] Supervisor Documentation
--- NOTE | 2019-02-20 19:44 | ADVANCED CARE ---
- Diagnosis (1) Tachyarrhythmia Diagnosis Current: Yes (2) Accelerated hypertension Diagnosis Current: Yes (3) Headache Diagnosis Current: Yes (4) Hypothyroidism Diagnosis Current: Yes (5) COPD with asthma Diagnosis Current: Yes (6) Morbid obesity with BMI of 45.0-49.9, adult Diagnosis Current: Yes Attendance: The patient's as well as her risk lead and his are all in attendance. Resuscitation Status: Do Not Resuscitate Discussion: The patient did have a living will in [place]. For some reason she did not bring it to [place]. I reviewed the healthcare proxy document that is in all of the admission packets distributed to the patient's. I pointed out where she can specify decision-makers. Currently her is the designated decision maker. We also spent time reviewing the difference between DNR and comfort measures. She does understand that she is being DNR will not affect any of the treatment we will implement today. Care Planning Goals: To complete a current healthcare proxy Document(s) Completed: None completed this evening Time Spent: 20 min
[2019-02-20] MEDS: AMLODIPINE BESYLATE 5 MG TABLET PO SCH (21:05)
[2019-02-20] MEDS: DILTIAZEM HCL 120 MG CAP.SR.24H PO SCH (21:05)
[2019-02-20] MEDS: ATORVASTATIN CALCIUM 10 MG TABLET PO SCH (21:06)
[2019-02-20] MEDS: HEPARIN SOD (PORCINE) 5,000 UNIT/ML 1 ML SYRINGE SUBCUT SCH (21:07)
--- NOTE | 2019-02-21 00:30 | EKG REPORT ---
SEVERITY:- ABNORMAL ECG - SINUS RHYTHM LEFT ANTERIOR FASCICULAR BLOCK ABNRM R PROG, CONSIDER ASMI OR LEAD PLACEMENT : Confirmed by: Chano Garcia 21-Feb-2019 00:30:11
--- NOTE | 2019-02-21 00:31 | EKG REPORT ---
SEVERITY:- BORDERLINE ECG - SINUS RHYTHM LOW VOLTAGE IN FRONTAL LEADS BORDERLINE R WAVE PROGRESSION, ANTERIOR LEADS : Confirmed by: Chano Garcia 21-Feb-2019 00:30:22
[2019-02-21 01:23] LABS: CREATINE KINASE MB 0.9 ng/mL (<4.55); TROPONIN I 0.019 ng/mL
[2019-02-21] MEDS: LEVOTHYROXINE SODIUM 0.088 MG TABLET PO SCH (05:13)
[2019-02-21] MEDS: HEPARIN SOD (PORCINE) 5,000 UNIT/ML 1 ML SYRINGE SUBCUT SCH ×3 (05:13→21:32)
[2019-02-21] MEDS: PANTOPRAZOLE SODIUM 20 MG TABLET.DR PO SCH (05:13)
[2019-02-21 06:26] LABS: ABSOLUTE BASOPHILS # (AUTO) 0.1 10^3/uL (0.0-0.2); ABSOLUTE LYMPHOCYTES (AUTO) 0.9 10^3/uL (0.5-4.7); ABSOLUTE MONOCYTES (AUTO) 0.9 10^3/uL (0.1-1.4); ABSOLUTE NEUT (AUTO) 11.8 10^3/uL (1.7-8.2); BASOPHILS % (AUTO) 0.5 % (0-2); EOSINOPHILS % (AUTO) 0.1 % (0-6); HEMATOCRIT 35.2 % (36.0-47.0); HEMOGLOBIN 11.5 g/dL (12.0-15.5); LYMPHOCYTES % (AUTO) 6.9 % (13-45); MEAN CORPUSCULAR HEMOGLOBIN 28.4 pg (27.0-33.4); MEAN CORPUSCULAR HGB CONC 32.7 g/dL (32.0-36.0); MEAN CORPUSCULAR VOLUME 87 fl (80-97); MONOCYTES % (AUTO) 6.8 % (3-13); PLATELET COUNT 231 10^3/uL (150-450); RED BLOOD COUNT 4.05 10^6/uL (3.72-5.28); RED CELL DISTRIBUTION WIDTH 15.2 % (11.5-14.0); SEGMENTED NEUTROPHILS % (AUTO) 85.7 % (42-78); TOTAL CELLS COUNTED % (AUTO) 100 %; WHITE BLOOD COUNT 13.8 10^3/uL (4.0-10.5)
[2019-02-21 06:44] LABS: ANION GAP 7 (5-19); BLOOD UREA NITROGEN 22 mg/dL (7-20); CALCIUM 8.9 mg/dL (8.4-10.2); CARBON DIOXIDE 30 mmol/L (22-30); CHLORIDE 103 mmol/L (98-107); GLUCOSE 121 mg/dL (75-110); POTASSIUM 3.9 mmol/L (3.6-5.0)
[2019-02-21 06:53] LABS: CREATINE KINASE MB 0.92 ng/mL (<4.55); TROPONIN I 0.057 ng/mL
[2019-02-21 06:57] LABS: FREE T3 2.73 pg/mL (2.77-5.27); FREE T4 (FREE THYROXINE) 1.61 ng/dL (0.78-2.19)
[2019-02-21 07:11] LABS: THYROID STIMULATING HORMONE 2.13 uIU/mL (0.47-4.68)
[2019-02-21] MEDS: HYDROCHLOROTHIAZIDE 25 MG TABLET PO SCH (09:47)
[2019-02-21] MEDS: AMLODIPINE BESYLATE 5 MG TABLET PO SCH ×2 (09:48→21:33)
[2019-02-21] MEDS: FLUTICASONE/VILANTEROL 200-25 MCG/DOSE IH SCH (09:48)
[2019-02-21] MEDS: ESCITALOPRAM OXALATE 10 MG TABLET PO SCH (10:44)
--- NOTE | 2019-02-21 14:54 | EKG REPORT ---
SEVERITY:- ABNORMAL ECG - SINUS RHYTHM LOW VOLTAGE IN FRONTAL LEADS NONSPECIFIC T ABNORMALITIES, LATERAL LEADS : Confirmed by: Chano Garcia 21-Feb-2019 14:53:13
[2019-02-21] MEDS: LOSARTAN POTASSIUM 50 MG TABLET PO SCH (16:26)
--- NOTE | 2019-02-21 17:02 | PDOC PROGRESS REPORT ---
Subjective Progress Note for:: 02/21/19 Subjective:: This is 79 years old female patient with past medical history of hypothyroidism, hypertension, hyperlipidemia, morbid obesity, COPD, CKD presented with chief complaint of headache which is characterized as tension- like. Patient also found to have systolic blood pressure of 200. She has been managed with IV Lopressor. Her current blood pressure also shows diastolic hypotension. This morning patient seen resting in bed and states she complains of headache. Reason For Visit: ACCELERATED HYPERTENSION,TACHYARRYTHMIA POSSIBLE Physical Exam Vital Signs: Temp Pulse Resp BP Pulse Ox 97.9 F 87 18 152/49 H 94 02/21/19 16:25 02/21/19 16:25 02/21/19 16:25 02/21/19 16:25 02/21/19 16:25 Intake & Output 02/20/19 02/21/19 02/22/19 06:59 06:59 06:59 Output Total 300 Balance -300 Weight 122.1 kg Results Laboratory Results: 02/21/19 05:54 02/21/19 05:54 02/20/19 02/20/19 02/21/19 17:50 17:50 05:54 WBC 15.2 H 13.8 H RBC 4.53 4.05 Hgb 12.8 11.5 L Hct 39.2 35.2 L MCV 86 87 MCH 28.3 28.4 MCHC 32.8 32.7 RDW 15.0 H 15.2 H Plt Count 260 231 Seg Neutrophils % 82.0 H 85.7 H Lymphocytes % 8.8 L 6.9 L Monocytes % 7.7 6.8 Eosinophils % 0.9 0.1 Basophils % 0.6 0.5 Absolute Neutrophils 12.4 H 11.8 H Absolute Lymphocytes 1.3 0.9 Absolute Monocytes 1.2 0.9 Absolute Eosinophils 0.1 0.0 Absolute Basophils 0.1 0.1 Sodium 140.9 Potassium 4.1 Chloride 102 Carbon Dioxide 29 Anion Gap 10 BUN 22 H Creatinine 1.14 Est GFR ( Amer) 56 L Est GFR (Non-Af Amer) 46 L Glucose 115 H Calcium 9.6 Magnesium Total Bilirubin 0.7 AST 21 ALT 17 Alkaline Phosphatase 77 Total Protein 6.9 Albumin 4.1 TSH Free T4 Free T3 pg/mL 02/21/19 02/21/19 05:54 05:54 WBC RBC Hgb Hct MCV MCH MCHC RDW Plt Count Seg Neutrophils % Lymphocytes % Monocytes % Eosinophils % Basophils % Absolute Neutrophils Absolute Lymphocytes Absolute Monocytes Absolute Eosinophils Absolute Basophils Sodium 140.0 Potassium 3.9 Chloride 103 Carbon Dioxide 30 Anion Gap 7 BUN 22 H Creatinine 1.18 Est GFR ( Amer) 54 L Est GFR (Non-Af Amer) 44 L Glucose 121 H Calcium 8.9 Magnesium 1.8 Total Bilirubin AST ALT Alkaline Phosphatase Total Protein Albumin TSH 2.13 Free T4 1.61 Free T3 pg/mL 2.73 L 02/20/19 02/20/19 02/21/19 17:50 17:50 00:19 Creatine Kinase 73 CK-MB (CK-2) 0.90 Troponin I 0.021 0.019 NT-Pro-B Natriuret Pep 02/21/19 05:54 Creatine Kinase CK-MB (CK-2) 0.92 Troponin I 0.057 NT-Pro-B Natriuret Pep 1560 H Impressions: Chest X-Ray 02/20/19 09:34 IMPRESSION: NO ACUTE RADIOGRAPHIC FINDING IN THE CHEST. Head CT 02/20/19 09:35 IMPRESSION: NORMAL BRAIN CT WITHOUT CONTRAST. EVIDENCE OF ACUTE STROKE: NO. Assessment and Plan - Diagnosis (1) Tachyarrhythmia Is this a current diagnosis for this admission?: Yes Plan: Resolved (2) Accelerated hypertension Is this a current diagnosis for this admission?: Yes Plan: Improving (3) Headache Qualifiers: Headache type: tension-type Is this a current diagnosis for this admission?: Yes Plan: Patient still complaining of frontal headache. (4) Hypothyroidism Qualifiers: Hypothyroidism type: acquired Qualified Code(s): E03.9 - Hypothyroidism, unspecified Is this a current diagnosis for this admission?: Yes Plan: Continue Synthroid (5) COPD (chronic obstructive pulmonary disease) Qualifiers: Emphysema type: unspecified Is this a current diagnosis for this admission?: Yes Plan: PRN bronchodilator (6) Morbid obesity with BMI of 45.0-49.9, adult Is this a current diagnosis for this admission?: Yes Plan: Patient counseled and encouraged to do lifestyle modification.
[2019-02-21] MEDS: METOPROLOL TARTRATE 50 MG TABLET PO SCH (21:32)
[2019-02-21] MEDS: ATORVASTATIN CALCIUM 10 MG TABLET PO SCH (21:32)
[2019-02-21] MEDS: DILTIAZEM HCL 120 MG CAP.SR.24H PO SCH (21:33)
[2019-02-22] MEDS: HEPARIN SOD (PORCINE) 5,000 UNIT/ML 1 ML SYRINGE SUBCUT SCH (05:08)
[2019-02-22] MEDS: PANTOPRAZOLE SODIUM 20 MG TABLET.DR PO SCH (05:10)
[2019-02-22] MEDS: LEVOTHYROXINE SODIUM 0.088 MG TABLET PO SCH (05:10)
[2019-02-22] MEDS: HYDROCHLOROTHIAZIDE 25 MG TABLET PO SCH (10:27)
[2019-02-22] MEDS: METOPROLOL TARTRATE 50 MG TABLET PO SCH (10:27)
[2019-02-22] MEDS: ESCITALOPRAM OXALATE 10 MG TABLET PO SCH (10:27)
[2019-02-22] MEDS: FLUTICASONE/VILANTEROL 200-25 MCG/DOSE IH SCH (10:28)
[2019-02-22] MEDS: LOSARTAN POTASSIUM 50 MG TABLET PO SCH (10:31)
[2019-02-22] MEDS: AMLODIPINE BESYLATE 5 MG TABLET PO SCH (10:32)
[2019-02-22 13:14] VITALS: BP 152/49
--- NOTE | 2019-02-22 13:31 | PDOC DISCHARGE SUMMARY ---
General - Admit/Disc Date/PCP Admission Date/Primary Care Provider: 02/20/19 17:28 SONIDO VAZQUEZ MD Discharge Date: 02/22/19 - Discharge Diagnosis (1) Hypertensive emergency Is this a current diagnosis for this admission?: Yes (2) Tachyarrhythmia Is this a current diagnosis for this admission?: Yes (3) Headache Is this a current diagnosis for this admission?: Yes (4) Hypothyroidism Is this a current diagnosis for this admission?: Yes (5) COPD (chronic obstructive pulmonary disease) Is this a current diagnosis for this admission?: Yes (6) Morbid obesity with BMI of 45.0-49.9, adult Is this a current diagnosis for this admission?: Yes - Additional Information Resuscitation Status: Do Not Resuscitate Prescriptions: Metoprolol Tartrate [Lopressor 50 mg Tablet] 50 mg PO Q12H #60 tablet Home Medications: Budesonide/Formoterol Fumarate [Symbicort HFA 160-4.5 mcg Inhaler 6 gm] 2 puff IH Q12 02/20/19 Escitalopram Oxalate [Lexapro 10 mg Tablet] 10 mg PO DAILY 02/20/19 Levothyroxine Sodium [Synthroid 0.088 mg Tablet] 88 mcg PO Q6AM 02/20/19 Losartan/Hydrochlorothiazide [Hyzaar 100-12.5 Tablet] 1 each PO DAILY 02/20/19 Lovastatin [Mevacor] 10 mg PO QPM 02/20/19 Omeprazole 20 mg PO Q6AM 02/20/19 Albuterol Sulfate [Proair HFA Inhalation Aerosol 8.5 gm MDI] 2 puff IH Q6HP PRN 02/21/19 Cholecalciferol (Vitamin D3) [Vitamin D3 2000 unit Tablet] 2,000 unit PO DAILY 02/21/19 Cyanocobalamin (Vitamin B-12) [Vitamin B-12 1000 mcg Tablet] 1 tab PO DAILY 02/21/19 Hydralazine HCl [Apresoline 50 mg Tablet] 50 mg PO Q8 02/21/19 Metoprolol Tartrate [Lopressor 50 mg Tablet] 50 mg PO Q12H #60 tablet 02/22/19 History of Present Illness History of Present Illness: EFRAIN WHITE is a 79 year old female with a history of hypertension and asthma reported to the emergency department because of a bad headache. She follows her blood pressures at home. Her systolic pressures have been greater than 200. She also had a terrible left-sided headache. During her evaluation emergency department she was given several doses of IV antihypertensive medica tions. She was given some medications for her headache. Her headache improved. Her blood pressure was improving and then she exhibited a tachyarrhythmia with a rate up to 140. It was possibly an atrial flutter. The rhythm spontaneously resolved. Because of the significant lability of her pressure as well as the need to monitor her and treat for tachyarrhythmia she was referred to the hospital service for admission. She also has asthma/chronic obstructive pulmonary disease. Unfortunately she did not know her medication regimen. She does note that she is on levothyroxine but she is not sure of the dose. Hospital Course Hospital Course: This is 79 years old female patient with past medical history of hypothyroidism, hypertension, hyperlipidemia, morbid obesity, COPD, CKD presented with chief complaint of headache which is characterized as tension- like. Patient also found to have systolic blood pressure of 200. She has been managed with IV Lopressor. Her current blood pressure also shows diastolic hypotension. This morning patient seen resting in bed and states she complains of headache. 02/22/2019: This morning patient seen resting in bed comfortably. She is not in pain or distress. She reported her headache subsided and she feels ready to go home. Her vital signs are stable. I will continue all her blood pressure medication and also I will send her with metoprolol 50 mg twice daily. Patient needs follow-up with her primary care physician in 1 week. Physical Exam Vital Signs: Temp Pulse Resp BP Pulse Ox 98.8 F 59 L 15 152/49 H 90 L 02/22/19 03:21 02/22/19 07:00 02/22/19 03:21 02/22/19 03:21 02/22/19 03:21 Intake & Output 02/21/19 02/22/19 02/23/19 06:59 06:59 06:59 Intake Total 240 Output Total 300 1250 Balance -300 -1010 Weight 122.1 kg 122.8 kg General appearance: PRESENT: no acute distress Head exam: PRESENT: atraumatic Eye exam: PRESENT: conjunctiva pink Mouth exam: PRESENT: moist Neck exam: ABSENT: carotid bruit, JVD, lymphadenopathy, thyromegaly Respiratory exam: PRESENT: clear to auscultation roly. ABSENT: rales, rhonchi, wheezes GI/Abdominal exam: PRESENT: normal bowel sounds, soft. ABSENT: distended, guarding, mass, organolmegaly, rebound, tenderness Neurological exam: PRESENT: alert, awake, oriented to person, oriented to place, oriented to time, oriented to situation Results Laboratory Results: 02/21/19 05:54 02/21/19 05:54 02/20/19 02/20/19 02/21/19 17:50 17:50 00:19 Creatine Kinase 73 CK-MB (CK-2) 0.90 Troponin I 0.021 0.019 NT-Pro-B Natriuret Pep 02/21/19 05:54 Creatine Kinase CK-MB (CK-2) 0.92 Troponin I 0.057 NT-Pro-B Natriuret Pep 1560 H Impressions: Chest X-Ray 02/20/19 09:34 IMPRESSION: NO ACUTE RADIOGRAPHIC FINDING IN THE CHEST. Head CT 02/20/19 09:35 IMPRESSION: NORMAL BRAIN CT WITHOUT CONTRAST. EVIDENCE OF ACUTE STROKE: NO. Qualifiers - * PATIENT BEING DISCHARGED WITH ANY OF THE FOLLOWING DIAGNOSIS: No Acute Heart Failure - Is this a Heart Failure Patient?: No LVEF < 40%?: No- if no continue to question #3 3. Anticoagulant therapy for permanect/persistent/paraoxysmal Afib or Aflutter: N/A
== END 2019-02-22 14:05 | disposition home or self-care (01) | DRG 304 ==
LOC: ER 08:52 → EH 17:28 → 3W 20:29
PROVIDERS: ADMIT Hospitalist; ATTEND Hospitalist
DX: I16.1 Hypertensive emergency (principal); N18.6 End stage renal disease; Z68.42 Body mass index [BMI] 45.0-49.9, adult; E78.00 Pure hypercholesterolemia, unspecified; I12.0 Hypertensive chronic kidney disease with stage 5 chronic kidney disease or end stage renal disease; Z66 Do not resuscitate; J44.9 Chronic obstructive pulmonary disease, unspecified; E03.9 Hypothyroidism, unspecified; K21.9 Gastro-esophageal reflux disease without esophagitis; G44.209 Tension-type headache, unspecified, not intractable; R00.0 Tachycardia, unspecified; E66.01 Morbid (severe) obesity due to excess calories
CPT/HCPCS: 36415; 70450; 71046; 80048; 80053; 81001; 82550; 82553; 83735; 83880; 84439; 84443; 84481; 84484; 85025; 93005; 93010; J0360; J0780; J1200; J3490